=== PATIENT | male | born 1950 | race Caucasian/White ===

== ENCOUNTER 2017-10-16 00:17 | Observation (INO) | payer MEDICARE, BC, OTHER ==
[2017-10-16 02:28] LABS: ADD MAN DIFF? NO
[2017-10-16 02:36] LABS: WHITE BLOOD COUNT 7.5 10^3/ul (4.8-10.8)
[2017-10-16 02:36] LABS: BASOPHILS % 0.4 % (0.0-2.0); EOSINOPHILS # 0.1 10^3/ul (0.0-0.5); EOSINOPHILS % 0.7 % (0.0-7.0); HEMATOCRIT 35.8 % (42.0-52.0); HEMOGLOBIN 11.8 g/dl (14.0-18.0); LYMPHOCYTES # 0.6 10^3/ul (0.8-2.9); MEAN CORPUSCULAR HEMOGLOBIN 34.6 pg (29.0-33.0); MEAN PLATELET VOLUME 12.4 fl (7.4-10.4); MONOCYTE # 0.5 10^3/ul (0.3-0.9); MONOCYTES % 7.2 % (0.0-11.0); NEUTROPHIL # 6.2 10^3/ul (1.6-7.5); NEUTROPHILS % 83.2 % (39.0-77.0); PLATELET COUNT 118 10^3/UL (140-415); POSITIVE DIFF @See below; RED BLOOD COUNT 3.41 10^6/ul (4.70-6.10); RED CELL DISTRIBUTION WIDTH 14.1 % (11.5-14.5)
[2017-10-16 02:51] LABS: ANION GAP 18 (8-16); BLOOD UREA NITROGEN 48 mg/dl (7-20); CALCIUM 9.3 mg/dl (8.4-10.2); CARBON DIOXIDE 35 mmol/L (21-31); CHLORIDE 94 mmol/L (97-110); CREATININE 7.97 mg/dl (0.61-1.24); GLUCOSE 123 mg/dl (70-220); SODIUM 143 mmol/L (135-144)
[2017-10-16 03:08] LABS: TROPONIN-I < 0.012 ng/ml (0.00-0.12)
[2017-10-16 06:23] LABS: CREATINE KINASE 32 IU/L (23-200)
[2017-10-16 06:31] LABS: CK INDEX 0.9; TROPONIN-I 0.014 ng/ml (0.00-0.12)
[2017-10-16] MEDS ORDERED: NITROGLYCERIN (SL) 0.4 MG TAB SL (07:30)
[2017-10-16] MEDS ORDERED: ACETAMINOPHEN 325 MG TAB PO (07:30)
[2017-10-16] MEDS ORDERED: ENOXAPARIN 40 MG/0.4 ML SYG SC (09:00)
[2017-10-16 09:59] LABS: TROPONIN-I 0.014 ng/ml (0.00-0.12)
[2017-10-16] MEDS: HEPARIN 5,000 UNIT/0.5 ML VIAL SC ×3 (10:00→22:10)
[2017-10-16] MEDS: ASPIRIN 325 MG TAB PO (10:18)
[2017-10-16 15:20] LABS: CREATINE KINASE 25 IU/L (23-200)
[2017-10-16 15:29] LABS: TROPONIN-I 0.013 ng/ml (0.00-0.12)
[2017-10-16 15:32] LABS: CK-MB 0.26 ng/ml (0.0-2.4)
[2017-10-17] MEDS ORDERED: BISACODYL (EC) 5 MG TAB PO (07:00)
[2017-10-17 08:56] LABS: ADD MAN DIFF? NO
[2017-10-17] MEDS: HEPARIN 5,000 UNIT/0.5 ML VIAL SC (09:00)
[2017-10-17 09:01] LABS: BASOPHILS % 0.3 % (0.0-2.0); EOSINOPHILS # 0.2 10^3/ul (0.0-0.5); EOSINOPHILS % 2.7 % (0.0-7.0); HEMATOCRIT 35.1 % (42.0-52.0); HEMOGLOBIN 11.4 g/dl (14.0-18.0); LYMPHOCYTES # 1.1 10^3/ul (0.8-2.9); LYMPHOCYTES % 18.6 % (15.0-51.0); MEAN CORPUSCULAR HEMOGLOBIN 34.5 pg (29.0-33.0); MEAN CORPUSCULAR HGB CONC 32.5 g/dl (32.0-37.0); MEAN CORPUSCULAR VOLUME 106.4 fl (82.0-101.0); MEAN PLATELET VOLUME 12.2 fl (7.4-10.4); MONOCYTE # 0.5 10^3/ul (0.3-0.9); NEUTROPHIL # 4.2 10^3/ul (1.6-7.5); NEUTROPHILS % 69.6 % (39.0-77.0); PLATELET COUNT 104 10^3/UL (140-415)
[2017-10-17 09:50] LABS: HEPATITIS B SURFACE ANTIGEN NEGATIVE (NEGATIVE)
[2017-10-17 09:59] LABS: THYROID STIMULATING HORMONE 0.989 MIU/L (0.465-4.680)
[2017-10-17] MEDS ORDERED: LIDOCAINE 1% (MDV) 10 ML INJ INJ (10:06)
[2017-10-17] MEDS ORDERED: LIDOCAINE 1% (MDV) 20 ML INJ (10:23)
[2017-10-17] MEDS: LIDOCAINE 1% (MDV) 20 ML INJ INJ (11:18)
[2017-10-17] MEDS: ASPIRIN 325 MG TAB PO (14:40)
== END 2017-10-17 17:58 | disposition home or self-care (01) ==
LOC: E/R 00:17 → TEL 02:48
DX: R07.9 Chest pain, unspecified (principal); I12.0 Hypertensive chronic kidney disease with stage 5 chronic kidney disease or end stage renal disease; N18.6 End stage renal disease; Z99.2 Dependence on renal dialysis; D64.9 Anemia, unspecified; I25.10 Atherosclerotic heart disease of native coronary artery without angina pectoris; M89.9 Disorder of bone, unspecified; Z85.46 Personal history of malignant neoplasm of prostate
CPT/HCPCS: 36415; 71045; 80048; 82550; 82553; 84443; 84484; 85025; 87340; 90935; 93005; 93306; 99285-25; G0378